=== PATIENT | female | born 1990 | race Caucasian/White ===

== ENCOUNTER 2017-04-29 16:37 | Emergency (ER) | payer OTHER ==
--- NOTE | 2017-04-29 19:12 | ED ORDER SUMMARY ---
..... Patient: JALEN DOUGLASS OrderSheet [facility] VisitID: [id number] [place] [address] 26y, F Registration Date/Time: 04/29/2017 ORDER SHEET Weight: 35.8 kg (stated) Allergies: No Known Drug Allergy GENERAL ORDERS: UA-Culture if indicated Urgent (17:20 04/29/2017 EKoroleva P.A.-C) (Ack 17:24 KHoerner) (18:24 JSimbeck R.N.) Urine Urgent (17:20 04/29/2017 EKoroleva P.A.-C) (Ack 17:24 KHoerner) (18:24 JSimbeck R.N.) US Pelvic Complete w Transvag Urgent (17:20 04/29/2017 EKoroleva P.A.-C) (Ack 17:25 KHoerner) (18:26 KHoerner) (Cancelled: [id number] CHagerty ER Dyeing Machine Feeder) Pelvic Exam Setup (17:20 04/29/2017 EKoroleva P.A.-C) (19:12 CHagerty ER Dyeing Machine Feeder) Wet Prep (Cervix) (c) Urgent (18:23 04/29/2017 EKoroleva P.A.-C) (18:26 KHoerner) GC/Chlamydia (Cervix) (c) Urgent (18:23 04/29/2017 EKoroleva P.A.-C) (18:26 KHoerner) US Pelvic Complete Urgent (19:04/29/2017 CHagerty ER Dyeing Machine Feeder verbal order read back to EKoroleva P.A.-C) (19:12 CHagerty ER Dyeing Machine Feeder) MEDICATION ORDERS: IV FLUIDS: ORDER SHEET NOTES: [Electronically signed by Morgan Cardoza R.N. (19:24 04/29/2017)] [Electronically signed by Madeleine Calvillo.A.-C (19:04/29/2017)] [Electronically locked/signed by Morgan Cardoza R.N. (19:04/29/2017)]
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
--- NOTE | 2017-04-29 19:12 | ED ORDER SUMMARY ---
..... Patient: JALEN DOUGLASS OrderSheet [facility] VisitID: [id number] [place] [address] 26y, F Registration Date/Time: 04/29/2017 ORDER SHEET Weight: 35.8 kg (stated) Allergies: No Known Drug Allergy GENERAL ORDERS: UA-Culture if indicated Urgent (17:20 04/29/2017 EKoroleva P.A.-C) (Ack 17:24 KHoerner) (18:24 JSimbeck R.N.) Urine Urgent (17:20 04/29/2017 EKoroleva P.A.-C) (Ack 17:24 KHoerner) (18:24 JSimbeck R.N.) US Pelvic Complete w Transvag Urgent (17:20 04/29/2017 EKoroleva P.A.-C) (Ack 17:25 KHoerner) (18:26 KHoerner) (Cancelled: [id number] CHagerty ER Nut Picker) Pelvic Exam Setup (17:20 04/29/2017 EKoroleva P.A.-C) (19:12 CHagerty ER Nut Picker) Wet Prep (Cervix) (c) Urgent (18:23 04/29/2017 EKoroleva P.A.-C) (18:26 KHoerner) GC/Chlamydia (Cervix) (c) Urgent (18:23 04/29/2017 EKoroleva P.A.-C) (18:26 KHoerner) US Pelvic Complete Urgent (19:04/29/2017 CHagerty ER Nut Picker verbal order read back to EKoroleva P.A.-C) (19:12 CHagerty ER Nut Picker) MEDICATION ORDERS: IV FLUIDS: ORDER SHEET NOTES: [Electronically signed by Morgan Cardoza R.N. (19:24 04/29/2017)] [Electronically signed by Madeleine Calvillo.A.-C (19:04/29/2017)] [Electronically locked/signed by Morgan Cardoza R.N. (19:04/29/2017)]
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
--- NOTE | 2017-04-29 19:26 | ED DISCHARGE INSTRUCTIONS ---
Patient: JALEN DOUGLASS General Instructions [facility] VisitID: [id number] [place] [address] 26y, F Registration Date/Time: 04/29/2017 Dysfunctional uterine bleeding- menorrhagia and metrorrhagia. INSTRUCTIONS (your US look good pending test for gonorrhea/ chlamydia). Warnings: Further evaluation is necessary. Prescription Medications: Zofran (orally disintegrating tablets) 4 mg: take 1 orally every 6 hours for 3 days as needed for nausea. Dispense ten (10). No refill. Substitution is permissible. Ibuprofen 800 mg tablets: take 1 tablet orally every 8 hours as needed for pain. Dispense fifteen (15). No refill. Ultram 50 mg: take 1 orally every 6 hours for 5 days, as needed for pain. Dispense twenty (20). No refills. Substitution is permissible. Follow-up with: Rishabh Shah MD, Obstetrics/Gynecology, , [facility], [address] [place] [address] Follow up. Call for the next available appointment. ADDITIONAL INFORMATION Irregular Vaginal Bleeding This is a condition in which bleeding occurs at unexpected times of the month. The bleeding may be heavier or revenue research analyst than usual. Heavy bleeding may lead to anemia. If severe enough, anemia may cause you to look pale and feel weak or fatigued. You might have shortness of breath even with little exertion. The female hormones produced in your body every month may be out of balance. This imbalance leads to bleeding. Causes could include an ovarian cyst, emotional stress, pelvic infection. Failure to ovulate during your last cycle may also cause this problem. Home Care: If bleeding is heavy, rest and avoid heavy exertion. You may use acetaminophen (Tylenol) or ibuprofen (Motrin, Advil) to control pain, unless another pain medicine was prescribed. [NOTE: If you have chronic liver or kidney disease or ever had a stomach ulcer or GI bleeding, talk with your doctor before using these medicines.] Iron supplements may be prescribed for anemia. It takes about 4-6 weeks for the iron to correct the anemia. Take the medicine as directed. See your doctor for a repeat blood test after you finish the iron treatment. If hormones were prescribed to control your bleeding, take them exactly as directed. If you were prescribed a medicine called Provera (medroxyprogesterone), the bleeding should stop while you are taking it. Another period will start a few days after you finish the medicine. Follow Up with your doctor, or as advised, within the next 1-2 days if heavy bleeding continues. Otherwise, follow up within the next 1-2 weeks. Get Prompt Medical Attention if any of the following occur: Bleeding becomes heavy (soaking one pad an hour for three hours) Fever of 100.4F (38C) or higher, or as directed by your healthcare provider Increase in abdominal pain Weakness, dizziness or fainting Ondansetron Hydrochloride Oral tablet What is this medicine? ONDANSETRON (on LUIS se zoey) is used to treat nausea and vomiting caused by chemotherapy. It is also used to prevent or treat nausea and vomiting after surgery. How should I use this medicine? Take this medicine by mouth with a glass of water. Follow the directions on your prescription label. Take your doses at regular intervals. Do not take your medicine more often than directed. Talk to your equalizing saw operator regarding the use of this medicine in children. Special care may be needed. What side effects may I notice from receiving this medicine? Side effects that you should report to your doctor or health healthcare network pricing consultant as soon as possible: allergic reactions like skin rash, itching or hives, swelling of the face, lips or tongue breathing problems dizziness fast or irregular heartbeat feeling faint or lightheaded, falls fever and chills swelling of the hands or feet tightness in the chest Side effects that usually do not require medical attention (report to your doctor or health healthcare network pricing consultant if they continue or are bothersome): constipation or diarrhea headache What may interact with this medicine? Do not take this medicine with any of the following medications: -apomorphine -cisapride -dofetilide -dronedarone -pimozide -thioridazine -ziprasidone This medicine may also interact with the following medications: -carbamazepine -phenytoin -rifampicin -tramadol -other medicines that prolong the QT interval (cause an abnormal heart rhythm) What if I miss a dose? If you miss a dose, take it as soon as you can. If it is almost time for your next dose, take only that dose. Do not take double or extra doses. Where should I keep my medicine? Keep out of the reach of children. Store between 2 and 30 degrees C (36 and 86 degrees F). Throw away any unused medicine after the expiration date. What should I tell my health care provider before I take this medicine? They need to know if you have any of these conditions: heart disease history of irregular heartbeat liver disease low levels of magnesium or potassium in the blood an unusual or allergic reaction to ondansetron, granisetron, other medicines, foods, dyes, or preservatives or trying to get breast-feeding What should I watch for while using this medicine? Check with your doctor or health healthcare network pricing consultant right away if you have any sign of an allergic reaction. You have been given the following additional information: Dysfunctional Uterine Bleeding Ondansetron Hydrochloride Oral tablet (Electronically signed by Madeleine Calvillo P.A.-C 04/29/2017 19:26)
--- NOTE | 2017-04-29 19:26 | ED DISCHARGE INSTRUCTIONS ---
Patient: JALEN DOUGLASS General Instructions [facility] VisitID: [id number] [place] [address] 26y, F Registration Date/Time: 04/29/2017 Dysfunctional uterine bleeding- menorrhagia and metrorrhagia. INSTRUCTIONS (your US look good pending test for gonorrhea/ chlamydia). Warnings: Further evaluation is necessary. Prescription Medications: Zofran (orally disintegrating tablets) 4 mg: take 1 orally every 6 hours for 3 days as needed for nausea. Dispense ten (10). No refill. Substitution is permissible. Ibuprofen 800 mg tablets: take 1 tablet orally every 8 hours as needed for pain. Dispense fifteen (15). No refill. Ultram 50 mg: take 1 orally every 6 hours for 5 days, as needed for pain. Dispense twenty (20). No refills. Substitution is permissible. Follow-up with: Rishabh Shah MD, Obstetrics/Gynecology, , [facility], [address] [place] [address] Follow up. Call for the next available appointment. ADDITIONAL INFORMATION Irregular Vaginal Bleeding This is a condition in which bleeding occurs at unexpected times of the month. The bleeding may be heavier or convertible top installer than usual. Heavy bleeding may lead to anemia. If severe enough, anemia may cause you to look pale and feel weak or fatigued. You might have shortness of breath even with little exertion. The female hormones produced in your body every month may be out of balance. This imbalance leads to bleeding. Causes could include an ovarian cyst, emotional stress, pelvic infection. Failure to ovulate during your last cycle may also cause this problem. Home Care: If bleeding is heavy, rest and avoid heavy exertion. You may use acetaminophen (Tylenol) or ibuprofen (Motrin, Advil) to control pain, unless another pain medicine was prescribed. [NOTE: If you have chronic liver or kidney disease or ever had a stomach ulcer or GI bleeding, talk with your doctor before using these medicines.] Iron supplements may be prescribed for anemia. It takes about 4-6 weeks for the iron to correct the anemia. Take the medicine as directed. See your doctor for a repeat blood test after you finish the iron treatment. If hormones were prescribed to control your bleeding, take them exactly as directed. If you were prescribed a medicine called Provera (medroxyprogesterone), the bleeding should stop while you are taking it. Another period will start a few days after you finish the medicine. Follow Up with your doctor, or as advised, within the next 1-2 days if heavy bleeding continues. Otherwise, follow up within the next 1-2 weeks. Get Prompt Medical Attention if any of the following occur: Bleeding becomes heavy (soaking one pad an hour for three hours) Fever of 100.4F (38C) or higher, or as directed by your healthcare provider Increase in abdominal pain Weakness, dizziness or fainting Ondansetron Hydrochloride Oral tablet What is this medicine? ONDANSETRON (on LUIS se zoey) is used to treat nausea and vomiting caused by chemotherapy. It is also used to prevent or treat nausea and vomiting after surgery. How should I use this medicine? Take this medicine by mouth with a glass of water. Follow the directions on your prescription label. Take your doses at regular intervals. Do not take your medicine more often than directed. Talk to your silver miner blasting regarding the use of this medicine in children. Special care may be needed. What side effects may I notice from receiving this medicine? Side effects that you should report to your doctor or health child day care provider as soon as possible: allergic reactions like skin rash, itching or hives, swelling of the face, lips or tongue breathing problems dizziness fast or irregular heartbeat feeling faint or lightheaded, falls fever and chills swelling of the hands or feet tightness in the chest Side effects that usually do not require medical attention (report to your doctor or health child day care provider if they continue or are bothersome): constipation or diarrhea headache What may interact with this medicine? Do not take this medicine with any of the following medications: -apomorphine -cisapride -dofetilide -dronedarone -pimozide -thioridazine -ziprasidone This medicine may also interact with the following medications: -carbamazepine -phenytoin -rifampicin -tramadol -other medicines that prolong the QT interval (cause an abnormal heart rhythm) What if I miss a dose? If you miss a dose, take it as soon as you can. If it is almost time for your next dose, take only that dose. Do not take double or extra doses. Where should I keep my medicine? Keep out of the reach of children. Store between 2 and 30 degrees C (36 and 86 degrees F). Throw away any unused medicine after the expiration date. What should I tell my health care provider before I take this medicine? They need to know if you have any of these conditions: heart disease history of irregular heartbeat liver disease low levels of magnesium or potassium in the blood an unusual or allergic reaction to ondansetron, granisetron, other medicines, foods, dyes, or preservatives or trying to get breast-feeding What should I watch for while using this medicine? Check with your doctor or health child day care provider right away if you have any sign of an allergic reaction. You have been given the following additional information: Dysfunctional Uterine Bleeding Ondansetron Hydrochloride Oral tablet (Electronically signed by Madeleine Calvillo P.A.-C 04/29/2017 19:26)
--- NOTE | 2017-04-29 19:26 | ED MED RECONCILIATION SUMMARY ---
Patient: JALEN DOUGLASS Medication Reconciliation Report [facility] VisitID: [id number] [place] [address] 26y, F Registration Date/Time: 04/29/2017 Weight: 35.8 kg Height/Length: 57 in. BMI: 17.1 ALLERGIES: No Known Drug Allergy The patient's Home Medications are listed below: THE FOLLOWING MEDICATIONS NEED TO BE RECONCILED: Sumatriptyline The source(s) of the original Home Medication information: Not obtained. The following Medications were given to the patient in the Emergency Department: None. The following Medications were prescribed to the patient: Zofran (orally disintegrating tablets) 4 mg: take 1 orally every 6 hours for 3 days as needed for nausea. Dispense ten (10). No refill. Substitution is permissible. -- Madeleine Calvillo, P.A.-C Ibuprofen 800 mg tablets: take 1 tablet orally every 8 hours as needed for pain. Dispense fifteen (15). No refill. -- Madeleine Calvillo, P.A.-C Ultram 50 mg: take 1 orally every 6 hours for 5 days, as needed for pain. Dispense twenty (20). No refills. Substitution is permissible. -- Madeleine Calvillo, P.A.-C
--- NOTE | 2017-04-29 19:26 | ED MAR SUMMARY ---
..... Medication Administration Record [facility] [address] [place], [place] [id number] Patient: JALEN DOUGLASS Visit ID: [id number] 26y, F Weight: 35.8 kg Height/Length: 57 in BMI: 17.1 ALLERGIES: No Known Drug Allergy
--- NOTE | 2017-04-29 19:26 | ED MAR SUMMARY ---
..... Medication Administration Record [facility] [address] [place], [place] [id number] Patient: JALEN DOUGLASS Visit ID: [id number] 26y, F Weight: 35.8 kg Height/Length: 57 in BMI: 17.1 ALLERGIES: No Known Drug Allergy
--- NOTE | 2017-04-29 19:26 | ED MED RECONCILIATION SUMMARY ---
Patient: JALEN DOUGLASS Medication Reconciliation Report [facility] VisitID: [id number] [place] [address] 26y, F Registration Date/Time: 04/29/2017 Weight: 35.8 kg Height/Length: 57 in. BMI: 17.1 ALLERGIES: No Known Drug Allergy The patient's Home Medications are listed below: THE FOLLOWING MEDICATIONS NEED TO BE RECONCILED: Sumatriptyline The source(s) of the original Home Medication information: Not obtained. The following Medications were given to the patient in the Emergency Department: None. The following Medications were prescribed to the patient: Zofran (orally disintegrating tablets) 4 mg: take 1 orally every 6 hours for 3 days as needed for nausea. Dispense ten (10). No refill. Substitution is permissible. -- Madeleine Calvillo, P.A.-C Ibuprofen 800 mg tablets: take 1 tablet orally every 8 hours as needed for pain. Dispense fifteen (15). No refill. -- Madeleine Calvillo, P.A.-C Ultram 50 mg: take 1 orally every 6 hours for 5 days, as needed for pain. Dispense twenty (20). No refills. Substitution is permissible. -- Madeleine Calvillo, P.A.-C
--- NOTE | 2017-04-29 22:15 | DIAGNOSTIC IMAGING REPORT ---
PROCEDURE: US COMPLETE PELVIC INDICATION: PELVIC PAIN TECHNIQUE: Transabdominal sierra scale and color Doppler sonographic images. The patient declined transvaginal scan. COMPARISON: None. FINDINGS: Uterus is of normal size (6.9 x 3.2 x 3.9 cm). Endometrial thickness is normal (7 mm). Right ovary is normal (2.4 cm) with normal vascularity. Left ovary is not visualized, but there is no evidence of adnexal mass. No evidence of free fluid. IMPRESSION: 1. Negative pelvic ultrasound.
== END 2017-04-29 19:23 | disposition home or self-care (01) ==
LOC: ED SRH 16:37
DX: N93.8 Other specified abnormal uterine and vaginal bleeding (principal); N92.1 Excessive and frequent menstruation with irregular cycle; Z79.899 Other long term (current) drug therapy
CPT/HCPCS: 90004; 90195; 91227; 91228; 93070